=== PATIENT | female | born 1960 | race Two or more races ===

== ENCOUNTER 2016-10-11 16:20 | Emergency (ER) | payer OTHER ==
[~2016-10-11] VITALS: Ht 162.6 cm; Wt 75.0 kg
[2016-10-11] MEDS ORDERED: IBUPROFEN 800MG TABLET PO ONE (22:30)
[2016-10-12] MEDS ORDERED: CYCLOBENZAPRINE 10MG TABLET PO ONE (00:15)
[2016-10-12] MEDS ORDERED: HYDROCODONE/ACETAMINOPHEN 5/325MG TABLET PO ONE (00:15)
[2016-10-12 02:41] VITALS: BP 148/85
== END 2016-10-12 02:43 | disposition home or self-care (01) ==
LOC: ER 16:37
DX: S09.90XA Unspecified injury of head, initial encounter (principal); M54.2 Cervicalgia; M25.512 Pain in left shoulder
CPT/HCPCS: 70450; 70490; 71010; 73030; 99284; A4565